=== PATIENT | female | born 1970 | race Caucasian/White ===

== ENCOUNTER 2018-03-31 18:15 | Emergency (ER) | payer OTHER ==
--- OUTSIDE RECORDS SUMMARY | 2018-03-31 18:17 | XMS REPORT ---
:1970 Author Organization eClinicalWorks Care Team Providers Name Role Phone Maya Zayas Provider Role Unavailable Allergies, Adverse Reactions, Alerts Substance Reaction Event Type codeine Info Not Available Drug Allergy flu vaccine Info Not Available Drug Allergy [place] Info Not Available Drug Allergy Problems Problem Type Condition Code Onset Dates Condition Status Problem Thoracic spine pain M54.6 Active Problem Peptic ulcer K27.9 Active Problem Peripheral edema R60.9 Active Problem Rheumatoid arthritis M06.9 Active Problem Hematuria R31.9 Active Problem Hypertension I10 Active Problem Hypoglycemia E16.2 Active Problem Chronic pain syndrome G89.4 Active Problem Diarrhea R19.7 Active Problem Menopause syndrome N95.1 Active Assessment URI, acute J06.9 Active Problem Right knee pain, unspecified M25.561 Active chronicity Assessment Right knee pain, unspecified M25.561 Active chronicity Problem Low back pain M54.5 Active Assessment Acute bronchitis, unspecified J20.9 Active organism Problem Allergic rhinitis due to pollen J30.1 Active Medications Medication Code Code Instructions Start End Date Status Dosage System Date Neurontin [facility] 91925655062 100 MG Orally Active 1 capsule Twice a day Augmentin [facility] 93434022451 875-125 MG November Active 1 tablet Orally every 12 2017 hrs Rosuvastatin [facility] 84969781296 10 MG Orally Active 1 tablet Calcium Once a day Meclizine HCl [facility] [address]-25 25 MG Orally Active 1 tablet three timez a as needed day as needed Inderal LA [facility] 85116442054 120 MG Orally Active 1 capsule Once a day Carafate [facility] 31206011743 1 GM Orally up Active 1 tablet to four times a day as needed Enbrel [facility] 28593560143 50 MG/ML Active 1 ml Subcutaneous every Chantix [facility] 20617102963 0.5 MG Orally Active 1 tablet Once a day Chantix [facility] 19355391323 1 MG Orally Active 1 tablet Continuing Twice a day Month Vipin Furosemide [facility] 50006126164 20 MG Orally Active 1 tablet Once a day Results No Known Results Summary Purpose eClinicalWorks Submission
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
--- OUTSIDE RECORDS SUMMARY | 2018-03-31 18:17 | XMS REPORT ---
:1970 Author Organization eClinicalWorks Care Team Providers Name Role Phone Maya Zayas Provider Role Unavailable Allergies, Adverse Reactions, Alerts Substance Reaction Event Type codeine Info Not Available Drug Allergy flu vaccine Info Not Available Drug Allergy [place] Info Not Available Drug Allergy Problems Problem Type Condition Code Onset Dates Condition Status Problem Diarrhea R19.7 Active Problem Low back pain M54.5 Active Problem Hematuria R31.9 Active Problem Hypoglycemia E16.2 Active Assessment Rheumatoid arthritis, involving M06.9 Active unspecified site, unspecified rheumatoid factor presence Problem Chronic pain syndrome G89.4 Active Assessment Polyarthralgia M25.50 Active Assessment Chronic pain syndrome G89.4 Active Problem Menopause syndrome N95.1 Active Problem Thoracic spine pain M54.6 Active Problem Allergic rhinitis due to pollen J30.1 Active Problem Peptic ulcer K27.9 Active Problem Peripheral edema R60.9 Active Assessment Hyperglycemia R73.9 Active Assessment Hypertension, unspecified type I10 Active Assessment Peripheral edema R60.9 Active Assessment Hyperlipidemia, unspecified E78.5 Active hyperlipidemia type Problem Polyarthralgia M25.50 Active Problem Hypertension, unspecified type I10 Active Problem Hyperlipidemia, unspecified E78.5 Active hyperlipidemia type Problem Rheumatoid arthritis, involving M06.9 Active unspecified site, unspecified rheumatoid factor presence Problem Hyperglycemia R73.9 Active Problem Right knee pain, unspecified M25.561 Active chronicity Medications Medication Code Code Instructions Start End Status Dosage System Date Date Furosemide [facility] 86631658926 20 MG Orally Active 1 tablet Once a day Propranolol HCl [facility] 00996096314 10 MG Orally Active 1 tablet Twice a day Neurontin [facility] 45837530024 100 mg Orally Active 1 capsule Twice a day Rosuvastatin [facility] 61330298971 10 MG Orally Active 1 tablet Calcium Once a day Chantix [facility] 15501582652 0.5 MG Orally Active 1 tablet Once a day Enbrel [facility] 98185069174 50 MG/ML Active 1 ml Subcutaneous every Meclizine HCl [facility] [address]-85 25 MG Orally Active 1 tablet three timez a as needed day as needed Carafate [facility] 97692607185 1 GM Orally up Jul 07, Active 1 tablet to four times a 2018 as needed day Propranolol HCl [facility] 50577605126 10 MG Orally January 08, Active 1 tablet Twice a day 2017 Chantix [facility] 89905848545 1 MG Orally Active 1 tablet Continuing Twice a day Month Vipin Results No Known Results Summary Purpose eClinicalWorks Submission
--- NOTE | 2018-03-31 19:43 | RAD REPORT ---
EXAM DESCRIPTION: RAD - Foot Right 3 View - 03/31/2018 6:59 pm CLINICAL HISTORY: Right fourth toe pain following trauma COMPARISON: None. FINDINGS: No fracture confirmed. There is no dislocation or angulation deformity. A minimal fracture of the distal phalanx could potentially be occult. There is no foreign body. Soft tissues are not gr ossly abnormal. IMPRESSION: No fracture confirmed.
--- NOTE | 2018-03-31 20:08 | ER ---
Nurse's Notes [facility] Name: Daysi Fuller Age: 47 yrs Sex: Female : 1970 Arrival Date: 03/31/2018 Time: 18:19 Bed 14 Private MD: Maya Zayas Diagnosis: Laceration without foreign body of right lesser toe(s) with damage to nail Presentation: 03/31 18:30 Presenting complaint: Patient states: Right 4th toe pain after kicking bed pot. Small aj amount of blood noted. Transition of care: patient was not received from another setting of care. Onset of symptoms was March 31, 2018. Risk Assessment: Do you want to hurt yourself or someone else? Patient reports no desire to harm self or others. Initial Sepsis Screen: Does the patient meet any 2 criteria? No. Patient's initial sepsis screen is negative. Does the patient have a suspected source of infection? No. Patient's initial sepsis screen is negative. Care prior to arrival: None. 18:30 Method Of Arrival: Ambulatory aj 18:30 Acuity: JAOCB 4 aj Triage Assessment: 18:31 General: Appears in no apparent distress. comfortable, Behavior is calm, cooperative, aj appropriate for age. Pain: Complains of pain in Right fourth toenail. Neuro: Level of Consciousness is awake, alert, obeys commands, Oriented to person, place, time, situation, Appropriate for age. Respiratory: Airway is patent Respiratory effort is even, unlabored, Respiratory pattern is regular, symmetrical. Derm: Skin is intact, is healthy with good turgor, Skin is pink, warm \T\ dry. normal. 18:31 Musculoskeletal: Reports pain in Right fourth toenail. Injury Description: Laceration aj sustained to Right fourth toenail is clean, was sustained 30-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 - Social history:: Smoking status: Patient uses tobacco products, smokes one pack cigarettes per day. - Ebola Screening: : Patient negative for fever greater than or equal to 101.5 degrees Fahrenheit, and additional compatible Ebola Virus Disease symptoms Patient denies exposure to infectious person Patient denies travel to an Ebola-affected area in the 21 days before illness onset No symptoms or risks identified at this time. Screenin:37 Abuse screen: Denies threats or abuse. Nutritional screening: No deficits noted. la1 Tuberculosis screening: No symptoms or risk factors identified. Fall Risk None identified. Assessment: 18:36 General: Appears in no apparent distress. Behavior is calm, cooperative. Pain: Denies la1 pain. Neuro: Level of Consciousness is awake, alert, obeys commands, Oriented to person, place, time, situation. Cardiovascular: Capillary refill < 3 seconds is brisk in bilateral toes Patient's skin is warm and dry. Respiratory: Airway is patent Respiratory effort is even, unlabored. GI: No signs and/or symptoms were reported involving the gastrointestinal system. : No signs and/or symptoms were reported regarding the genitourinary system. Musculoskeletal: Circulation, motion, and sensation intact. Capillary refill < 3 seconds, Range of motion: intact in all extremities. Injury Description: Crush injury sustained to Right fourth toenail was sustained 30-60 minutes ago. 19:05 General: Appears in no apparent distress. Behavior is calm, cooperative. Pain: Denies ea pain. Neuro: Level of Consciousness is awake, alert, obeys commands, Oriented to person, place, time, situation. Cardiovascular: Patient's skin is warm and dry. Respiratory: Airway is patent Respiratory effort is even, unlabored. GI: No signs and/or symptoms were reported involving the gastrointestinal system. : No signs and/or symptoms were reported regarding the genitourinary system. Musculoskeletal: Circulation, motion, and sensation intact. Injury Description: Crush injury sustained to plantar aspect of right fifth toe and Right fifth toenail. 20:33 Reassessment: Patient and/or family updated on plan of care and expected duration. Pain ea level reassessed. Patient is alert, oriented x 3, equal unlabored respirations, skin warm/dry/pink. Discharge instructions given to patient, verbalized the understanding of instruction. Vital Signs: 18:31 BP 135 / 76; Pulse 86; Resp 16; Temp 98.1; Pulse Ox 94% on R/A; Weight 97.07 kg; Height aj 5 ft. 6 in. (167.64 cm); 19:09 BP 145 / 93; Pulse 67; Resp 18; Pulse Ox 98% ; Pain 0/10; ea 20:15 BP 135 / 70; Pulse 70; Resp 18; Pulse Ox 99% ; Pain 0/10; ea 18:31 Body Mass Index 34.54 (97.07 kg, 167.64 cm) ED Course: 18:19 Patient arrived in ED. rg4 18:19 Maya Zayas MD is Private Physician. rg4 18:23 Amelia Meyers [facility]-C [facility]. snw 18:23 Marcos Patrick MD is Attending Physician. snw 18:30 Triage completed. aj 18:31 Arm band placed on left wrist. Patient placed in an exam room. aj 18:36 Valentin Curran, RN is Primary Nurse. la1 18:37 Call light in reach. la1 18:37 No provider procedures requiring assistance completed. Patient did not have IV access la1 during this emergency room visit. 18:59 Foot Right 3 View XRAY In Process Unspecified. EDMS 20:06 Maya Zayas MD is Referral Physician. snw Administered Medications: No medications were administered Outcome: 20:07 Discharge ordered by . snw 20:32 Discharged to home ambulatory, with family. ea 20:32 Condition: improved 20:32 Discharge instructions given to patient, Instructed on discharge instructions, follow up and referral plans. medication usage, Demonstrated understanding of instructions, follow-up care, medications, Prescriptions given X 1. 20:35 Patient left the ED. ea Signatures: Dispatcher [employer] EDMS Kala Vasquez, RN Amelia Ramos FNP-C FNP-Csnw Valentin Curran RN Марина Hoyos rg4 Latha Cerrato RN RN ea
--- NOTE | 2018-03-31 20:08 | EDPHYS ---
Physician Documentation [facility] Name: Daysi Fuller Age: 47 yrs Sex: Female : 1970 Arrival Date: 03/31/2018 Time: 18:19 Bed 14 Private MD: Maya Zayas ED Physician Marcos Patrick HPI: 03/31 19:11 This 47 yrs old Female presents to ER via Ambulatory with complaints of Toe snw Injury. 19:11 Onset: The symptoms/episode began/occurred suddenly, today. The patient has not snw experienced similar symptoms in the past. It is unknown whether or not the patient has recently seen a physician. 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 - Social history:: Smoking status: Patient uses tobacco products, smokes one pack cigarettes per day. - Ebola Screening: : Patient negative for fever greater than or equal to 101.5 degrees Fahrenheit, and additional compatible Ebola Virus Disease symptoms Patient denies exposure to infectious person Patient denies travel to an Ebola-affected area in the 21 days before illness onset No symptoms or risks identified at this time. ROS: 19:10 Constitutional: Negative for fever, chills, and weight loss, Eyes: Negative for injury, snw pain, redness, and discharge, ENT: Negative for injury, pain, and discharge, Neck: Negative for injury, pain, and swelling, Cardiovascular: Negative for chest pain, palpitations, and edema, Respiratory: Negative for shortness of breath, cough, wheezing, and pleuritic chest pain, Abdomen/GI: Negative for abdominal pain, nausea, vomiting, diarrhea, and constipation, Back: Negative for injury and pain, : Negative for injury, bleeding, discharge, and swelling, Neuro: Negative for headache, weakness, numbness, tingling, and seizure. 19:10 Skin: Negative for injury, rash, and discoloration. 19:10 MS/extremity: Positive for injury or acute deformity, contusion, laceration, of the distal fourth toe/nail trauma. Exam: 19:07 Constitutional: This is a well developed, well nourished patient who is awake, alert, snw and in no acute distress. Head/Face: Normocephalic, atraumatic. Eyes: Pupils equal round and reactive to light, extra-ocular motions intact. Lids and lashes normal. Conjunctiva and sclera are non-icteric and not injected. Cornea within normal limits. Periorbital areas with no swelling, redness, or edema. ENT: Nares patent. No nasal discharge, no septal abnormalities noted. Tympanic membranes are normal and external auditory canals are clear. Oropharynx with no redness, swelling, or masses, exudates, or evidence of obstruction, uvula midline. Mucous membranes moist. Neck: Trachea midline, no thyromegaly or masses palpated, and no cervical lymphadenopathy. Supple, full range of motion without nuchal rigidity, or vertebral point tenderness. No Meningismus. Chest/axilla: Normal chest wall appearance and motion. Nontender with no deformity. No lesions are appreciated. Cardiovascular: Regular rate and rhythm with a normal S1 and S2. No gallops, murmurs, or rubs. Normal PMI, no JVD. No pulse deficits. Respiratory: Lungs have equal breath sounds bilaterally, clear to auscultation and percussion. No rales, rhonchi or wheezes noted. No increased work of breathing, no retractions or nasal flaring. Abdomen/GI: Soft, non-tender, with normal bowel sounds. No distension or tympany. No guarding or rebound. No evidence of tenderness throughout. Back: No spinal tenderness. No costovertebral tenderness. Full range of motion. Skin: Warm, dry with normal turgor. Normal color with no rashes, no lesions, and no evidence of cellulitis. Neuro: Awake and alert, GCS 15, oriented to person, place, time, and situation. Cranial nerves II-XII grossly intact. Motor strength 5/5 in all extremities. Sensory grossly intact. Cerebellar exam normal. Normal gait. Psych: Awake, alert, with orientation to person, place and time. Behavior, mood, and affect are within normal limits. 19:07 Musculoskeletal/extremity: Extremities: grossly normal except: noted in the right fourth distal toe/nail: contusion, ecchymosis, swelling, tenderness, spilt 4th toenail vertically, bleeding controlled, ROM: no acute changes, Circulation is intact in all extremities. Vital Signs: 18:31 BP 135 / 76; Pulse 86; Resp 16; Temp 98.1; Pulse Ox 94% on R/A; Weight 97.07 kg; Height aj 5 ft. 6 in. (167.64 cm); 19:09 BP 145 / 93; Pulse 67; Resp 18; Pulse Ox 98% ; Pain 0/10; ea 20:15 BP 135 / 70; Pulse 70; Resp 18; Pulse Ox 99% ; Pain 0/10; ea 18:31 Body Mass Index 34.54 (97.07 kg, 167.64 cm) aj Laceration: 20:05 Wound Repair of 1cm ( 0.4in ) subcutaneous laceration to laceration of right fourth snw toe. Linear shaped.. pulled part of toenail off. Distal neuro/vascular/tendon intact. Anesthesia: Local anesthetic administered with 0 mls of 1% lidocaine. Wound prep: Wound explored moderately. Skin closed with 1 4-0 Prolene using simple sutures and sterile technique. Dressed with pressure dressing. Patient tolerated well. MDM: 18:37 Patient medically screened. [facility] 20:09 Data reviewed: vital signs, nurses notes. Data interpreted: Pulse oximetry: on room air snw is 98 %. Interpretation: normal. Counseling: I had a detailed discussion with the patient and/or guardian regarding: the historical points, exam findings, and any diagnostic results supporting the discharge/admit diagnosis, the presence of at least one elevated blood pressure reading (>120/80) during this emergency department visit, radiology results, the need for outpatient follow up, to return to the emergency department if symptoms worsen or persist or if there are any questions or concerns that arise at home. Special discussion: I discussed in detail with the patient the higher chance of wound infection based on his presenting history. Based on the history and exam findings, there is no indication for further emergent testing or inpatient evaluation. I discussed with the patient/guardian the need to see the primary care provider for further evaluation of the symptoms. 03/31 18:37 Order name: Foot Right 3 View XRAY; Complete Time: 19:44 snw 03/31 20:09 Order name: Wound Care; Complete Time: 20:31 snw 03/31 20:09 Order name: Wound dressing; Complete Time: 20:31 snw Administered Medications: No medications were administered Disposition: 04/01 09:21 Co-signature as Attending Physician, Marcos Patrick MD I agree with the assessment and shawn plan of care. Disposition: 03/31/18 20:07 Discharged to Home. Impression: Laceration without foreign body of right lesser toe(s) with damage to nail. - Condition is Stable. - Discharge Instructions: Contusion, Laceration Care, Adult, Fingernail or Toenail Removal, Adult. - Prescriptions for Diclofenac Sodium 75 mg Oral Tablet Sustained Release - take 1 tablet by ORAL route 2 times per day; 30 tablet. - Medication Reconciliation Form, Thank You Letter, Antibiotic Education, Prescription Opioid Use form. - Follow up: Maya Zayas MD; When: 7 - 10 days; Reason: Staple/Suture removal. Follow up: Emergency Department; When: As needed; Reason: Worsening of condition. Signatures: Dispatcher [employer] EDKala Ramachandran, RN Marcos Osorio MD MD cha Therrien, Shelly, BLISTER PACKAGING MACHINE OPERATOR-C BLISTER PACKAGING MACHINE OPERATOR-Csnw Valentin Curran RN RN laLatha Watkins RN RN ea Corrections: (The following items were deleted from the chart) 03/31 20:35 20:07 03/31/2018 20:07 Discharged to Home. Impression: Laceration without foreign body ea of right lesser toe(s) with damage to nail. Condition is Stable. Forms are Medication Reconciliation Form, Thank You Letter, Antibiotic Education, Prescription Opioid Use. Follow up: Maya Zayas; When: 7 - 10 days; Reason: Staple/Suture removal. Follow up: Emergency Department; When: As needed; Reason: Worsening of condition. snw
[2018-03-31 20:39] VITALS: TEMP 98.1
[2018-03-31 20:41] VITALS: BP 135/70; O2SAT 99
== END 2018-03-31 20:35 | disposition home or self-care (01) ==
LOC: ER 18:15
PROC: 0JQQ0ZZ Repair Right Foot Subcutaneous Tissue and Fascia, Open Approach (ICD-10-PCS; principal; 2018-03-31)
DX: S91.214A Laceration without foreign body of right lesser toe(s) with damage to nail, initial encounter (principal); W22.09XA Striking against other stationary object, initial encounter; Y93.01 Activity, walking, marching and hiking; Y92.013 Bedroom of single-family (private) house as the place of occurrence of the external cause; Z88.5 Allergy status to narcotic agent; M06.9 Rheumatoid arthritis, unspecified; F17.210 Nicotine dependence, cigarettes, uncomplicated
CPT/HCPCS: 99283

== ENCOUNTER 2018-12-30 21:52 | Emergency (ER) | payer OTHER ==
--- OUTSIDE RECORDS SUMMARY | 2018-12-30 21:55 | XMS REPORT ---
:1970 Author Organization eClinicalWorks Care Team Providers Name Role Phone Maya Zayas Provider Role Unavailable Allergies, Adverse Reactions, Alerts Substance Reaction Event Type codeine Info Not Available Drug Allergy flu vaccine Info Not Available Drug Allergy [place] Info Not Available Drug Allergy Problems Problem [...] End Status Dosage System Date Date Furosemide [facility] 39087735372 20 MG Orally Active 1 tablet Once a day Propranolol HCl [facility] 56798081221 10 MG Orally Active 1 tablet Twice a day Neurontin [facility] 67082204861 100 mg Orally Active 1 capsule Twice a day Rosuvastatin [facility] 24473422369 10 MG Orally Active 1 tablet Calcium Once a day Chantix [facility] 34747925990 0.5 MG Orally Active 1 tablet Once a day Enbrel [facility] 01253591919 50 MG/ML Active 1 ml Subcutaneous every Meclizine HCl [facility] [address]-02 25 MG Orally Active 1 tablet three timez a as needed day as needed Carafate [facility] 41999864101 1 GM Orally up Jul 07, Active 1 tablet to four times a 2018 as needed day Propranolol HCl [facility] 65354100104 10 MG Orally January 08, Active 1 tablet Twice a day 2017 Chantix [facility] 73238618258 1 MG Orally Active 1 tablet Continuing Twice a day Month Vipin Results No Known Results Summary Purpose eClinicalWorks Submission
--- OUTSIDE RECORDS SUMMARY | 2018-12-30 21:55 | XMS REPORT ---
:1970 Author Organization eClinicalWorks Care Team Providers Name Role Phone Maya Zayas Provider Role Unavailable Allergies, Adverse Reactions, Alerts Substance Reaction Event Type flu vaccine Info Not Available Drug Allergy [place] Info Not Available Drug Allergy Problems Problem [...] Status Dosage System Date Date Propranolol HCl [facility] 07203953290 10 MG Orally January 08, Active 1 tablet Twice a day 2017 Rosuvastatin [place] 03581729543 10 MG Orally Active 1 tablet Calcium Once a day Enbrel [facility] 33029702627 50 MG/ML Active 1 ml Subcutaneous every Meclizine HCl [facility] [address]-00 25 MG Orally Active 1 tablet three timez a as needed day as needed Neurontin ND 35321796543 100 mg Orally Active 1 capsule Twice a day Carafate ND 98549285532 1 GM Orally up Jul 07, Active 1 tablet to four times a 2018 as needed day Furosemide ND 50516117460 20 MG Orally Active 1 tablet Once a day Chantix [facility] 61407615083 1 MG Orally Active 1 tablet Continuing Twice a day Chantix [facility] 17370861175 0.5 MG Orally Active 1 tablet Once a day Propranolol HCl [facility] 84757035062 10 MG Orally Active 1 tablet Twice a day Results No Known Results Summary Purpose eClinicalWorks Submission
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
--- OUTSIDE RECORDS SUMMARY | 2018-12-30 21:56 | XMS REPORT ---
:1970 Author Organization eClinicalWorks Care Team Providers Name Role Phone Chana Maya Provider Role Unavailable Allergies, Adverse Reactions, Alerts Substance Reaction Event Type flu vaccine Info Not Available Drug Allergy Rosuvastatin Calcium Bladder leakage Drug Allergy [place] Info Not Available Drug Allergy Problems Problem Type Condition Code Onset Dates Condition Status Assessment Rheumatoid arthritis, involving M06.9 Active unspecified site, unspecified rheumatoid factor presence Assessment Chronic pain syndrome G89.4 Active Assessment Hyperlipidemia, unspecified E78.5 Active hyperlipidemia type Assessment Polyarthralgia M25.50 Active Assessment Peripheral edema R60.9 Active Assessment Hypertension, unspecified type I10 Active Assessment Abnormal CBC R79.89 Active Assessment Leukocytosis, unspecified type D72.829 Active Assessment Post-traumatic stress reaction F43.10 Active Problem Hypoglycemia E16.2 Active Assessment Rash and nonspecific skin eruption R21 Active Problem Menopause syndrome N95.1 Active Problem Diarrhea R19.7 Active Problem Low back pain M54.5 Active Problem Hematuria R31.9 Active Problem Leukocytosis, unspecified type D72.829 Active Problem Abnormal CBC R79.89 Active Problem Polyarthralgia M25.50 Active Problem Rheumatoid arthritis, involving M06.9 Active unspecified site, unspecified rheumatoid factor presence Problem Rash and nonspecific skin eruption R21 Active Problem Hypertension, unspecified type I10 Active Problem Contusion of abdominal wall, S30.1XXD [...] Problem Thoracic spine pain M54.6 Active Problem Peripheral edema R60.9 Active Medications Medication Code Code Instructions Start End Status Dosage System Date Date Propranolol HCl [facility] 66586358451 10 MG Orally Active 1 tablet Twice a day Neurontin [facility] 03237470740 100 mg Orally Active 1 capsule Twice a day Carafate [facility] 59468708925 1 GM Orally up Jun Active 1 tablet as to four times , needed a day 2018 Furosemide [facility] 81389470163 20 MG Orally Active 1 tablet Once a day Enbrel [facility] 15619693235 50 MG/ML Active 1 ml Subcutaneous every Propranolol HCl [facility] 93984806705 10 MG Orally January 08, Active 1 tablet Twice a day 2017 Chantix [facility] 27989369964 1 MG Orally Active 1 tablet Continuing Month Twice a day Vipin Chantix [facility] 18211853083 0.5 MG Orally Active 1 tablet Once a day Rosuvastatin [facility] 36237737211 10 MG Orally Active 1 tablet Calcium Once a day in the evening Triamcinolone [facility] 36628673336 0.1 % November Active 1 application Acetonide Externally 27, to affected Twice a day 2018 area Meclizine HCl [facility] [address]-40 25 MG Orally Active 1 tablet as three timez a needed day as needed Results No Known Results Summary Purpose eClinicalWorks Submission
[2018-12-31] MEDS ORDERED: AMOX/K CLAV 875 MG TAB ONE (00:17)
[2018-12-31] MEDS ORDERED: BUPIVACAINE 0.5% PF 10 ML VIAL ONE (00:17)
[2018-12-31] MEDS ORDERED: LIDOCAINE 1% W/EPI 1:100,000 MDV 50 ML VIAL ONE (00:18)
[2018-12-31] MEDS ORDERED: TETANUS & DIPHTHERIA TOX,ADULT 0.5 ML VIAL ONE (00:18)
--- NOTE | 2018-12-31 00:41 | ER ---
Nurse's Notes [facility] Name: Daysi Fuller Age: 48 yrs Sex: Female : 1970 Arrival Date: 12/30/2018 Time: 21:56 Bed 15 Private MD: Maya Zayas Diagnosis: Bitten by dog;Laceration without foreign body of right hand Presentation: 12/30 21:58 Presenting complaint: Patient states: My dog bit me. Transition of care: patient was ed1 not received from another setting of care. Onset of symptoms was December 30, 2018. Risk Assessment: Do you want to hurt yourself or someone else? Patient reports no desire to harm self or others. Initial Sepsis Screen: Does the patient meet any 2 criteria? No. Patient's initial sepsis screen is negative. Does the patient have a suspected source of infection? No. Patient's initial sepsis screen is negative. Care prior to arrival: None. 21:58 Method Of Arrival: Ambulatory ed1 21:58 Acuity: JACOB 4 ed1 Triage Assessment: 22:02 Bite description: bite sustained to right hand is from animal, was sustained 30-60 ed1 minutes ago. by a dog, animal information: vaccination(s) is current, Animal control has. General: Appears uncomfortable, Behavior is calm, cooperative. Pain: Complains of pain in right hand Pain currently is 8 out of 10 on a pain scale. 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 - Social history:: Smoking status: Patient uses tobacco products, smokes two packs cigarettes per day. - Ebola Screening: : Patient negative for fever greater than or equal to 101.5 degrees Fahrenheit, and additional compatible Ebola Virus Disease symptoms Patient denies exposure to infectious person Patient denies travel to an Ebola-affected area in the 21 days before illness onset No symptoms or risks identified at this time. Screenin:00 Abuse screen: Denies threats or abuse. Nutritional screening: No deficits noted. jb4 Tuberculosis screening: No symptoms or risk factors identified. Fall Risk None identified. Assessment: 22:15 General: [facility] Department notified of dog bite. Jumpbasting Lining Baster in ed1 route to get statement from patient.. 23:00 General: Appears in no apparent distress. uncomfortable, Behavior is calm, cooperative, jb4 appropriate for age. Pain: Complains of pain in heel of right hand Pain does not radiate. Pain currently is 5 out of 10 on a pain scale. Quality of pain is described as stabbing. Neuro: Level of Consciousness is awake, alert, obeys commands, Oriented to person, place, time, situation. Cardiovascular: Patient's skin is warm and dry. Respiratory: Airway is patent Respiratory effort is even, unlabored, Respiratory pattern is regular, symmetrical. GI: No signs and/or symptoms were reported involving the gastrointestinal system. : No signs and/or symptoms were reported regarding the genitourinary system. EENT: No signs and/or symptoms were reported regarding the EENT system. Derm: Skin puncture wound noted to the right palm Skin is pink, warm \T\ dry. Musculoskeletal: Circulation, motion, and sensation intact. Range of motion: intact in all extremities. Injury Description: Abrasion sustained to palmar aspect of proximal phalanx of right thumb and palmar aspect of right wrist Puncture sustained to heel of right hand. 12/31 00:00 Reassessment: Patient appears in no apparent distress at this time. Patient and/or jb4 family updated on plan of care and expected duration. Pain level reassessed. Patient is alert, oriented x 3, equal unlabored respirations, skin warm/dry/pink. 00:53 Reassessment: Patient appears in no apparent distress at this time. Patient and/or jb4 family updated on plan of care and expected duration. Pain level reassessed. Patient is alert, oriented x 3, equal unlabored respirations, skin warm/dry/pink. ambulated out of ED with daughter, steady gait, no IV access during this ED visit. Vital Signs: 12/30 22:02 BP 154 / 87; Pulse 78; Resp 18; Temp 97.7; Pulse Ox 96% on R/A; Weight 92.08 kg; Height ed1 5 ft. 8 in. (172.72 cm); Pain 8/10; 23:00 BP 145 / 70; Pulse 73; Resp 16; Pulse Ox 96% on R/A; jb4 12/31 00:15 BP 155 / 98; Pulse 78; Resp 16; Pulse Ox 97% on R/A; jb4 12/30 22:02 Body Mass Index 30.87 (92.08 kg, 172.72 cm) ed1 ED Course: 12/30 21:56 Patient arrived in ED. am2 21:56 Maya Zayas MD is Private Physician. am2 21:58 Triage completed. ed1 22:02 Arm band placed on. ed1 22:49 Marcos Patel PA is PHCP. cp 22:49 Marcos Patrick MD is Attending Physician. cp 23:00 Patient has correct armband on for positive identification. Bed in low position. Call jb4 light in reach. Side rails up X 1. Pulse ox on. NIBP on. 23:00 No provider procedures requiring assistance completed. Patient did not have IV access jb4 during this emergency room visit. 23:38 Joao Molina, LUIS is Primary Nurse. jb4 12/31 00:15 XRAY Hand RIGHT 3 View In Process Unspecified. 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 Exp: jb4 10/10/2020. Lot #: [id number]. } Route: IM; Site: left deltoid; 00:53 Follow up: Response: No adverse reaction jb4 00:24 Drug: Augmentin 875 mg Route: PO; jb4 00:52 Follow up: Response: No adverse reaction jb4 00:52 Not Given (Patient Refused): Lidocaine-Epinephrine -1%: (1:100,000) 5 ml 20 ml jb4 Infiltration once; to bedside 00:52 Not Given (Patient Refused): Marcaine (0.5 %) 5 ml 10 ml Infiltration once jb4 Outcome: 00:40 Discharge ordered by . cp 00:55 Discharged to home ambulatory. jb4 00:55 Condition: stable 00:55 Discharge instructions given to patient, family, Instructed on discharge instructions, follow up and referral plans. medication usage, Demonstrated understanding of instructions, follow-up care, medications, Prescriptions given X 2. 00:56 Patient left the ED. jb4 Signatures: Dispatcher [employer] EDSophie Mora RN RN ed1 Marcos Patel PA PA cp Bryson, James, RN RN jb4 Kala Ramirez am2
--- NOTE | 2018-12-31 00:41 | EDPHYS ---
Physician Documentation [facility] Name: Daysi Fuller Age: 48 yrs Sex: Female : 1970 Arrival Date: 12/30/2018 Time: 21:56 Bed 15 Private MD: Maya Zayas ED Physician Marcos Patrick HPI: 12/30 23:30 This 48 yrs old Female presents to ER via Ambulatory with complaints of Dog cp Bite. 23:30 The patient was bitten on the palmar aspect of right hand, by a dog, at home. Onset: cp The symptoms/episode began/occurred just prior to arrival. Animal information: bitten by dog that belongs to patient, law enforcement contacted. Secondary to the bite the patient reports a laceration, that is deep, irregular shaped. Associated signs and symptoms: Pertinent positives: tenderness, bleeding. Severity of symptoms: in the emergency department the symptoms have improved, mildly. 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 - Social history:: Smoking status: Patient uses tobacco products, smokes two packs cigarettes per day. - Ebola Screening: : Patient negative for fever greater than or equal to 101.5 degrees Fahrenheit, and additional compatible Ebola Virus Disease symptoms Patient denies exposure to infectious person Patient denies travel to an Ebola-affected area in the 21 days before illness onset No symptoms or risks identified at this time. ROS: 23:35 Constitutional: Negative for body aches, chills, fever. cp 23:35 Eyes: Negative for injury, pain, redness, and discharge. cp 23:35 Cardiovascular: Negative for chest pain. 23:35 Respiratory: Negative for cough, shortness of breath, wheezing. 23:35 Abdomen/GI: Negative for abdominal pain, nausea, vomiting, and diarrhea. 23:35 Skin: Positive for of the right hand, dog bite. 23:35 Neuro: Negative for numbness, weakness. 23:35 All other systems are negative. Exam: 12/31 00:15 Constitutional: The patient appears in no acute distress, alert, awake, non-toxic, well cp developed, well nourished. 00:15 Head/Face: Normocephalic, atraumatic. cp 00:15 Chest/axilla: Inspection: normal. 00:15 Cardiovascular: Rate: normal. 00:15 Respiratory: the patient does not display signs of respiratory distress, Respirations: normal, no use of accessory muscles, no retractions, no splinting, no tachypnea. 00:15 Musculoskeletal/extremity: Perfusion: the extremity is normally perfused throughout, Sensation intact. Tendon exam: specific tendon testing normal through active and passive range of motion 00:15 Skin: injury, laceration(s), the wound is approximately 1.5 cm(s), of the hyper thenar eminence of right hand, that can be described as no foreign body, jagged, with mild bleeding. Vital Signs: 12/30 22:02 BP 154 / 87; Pulse 78; Resp 18; Temp 97.7; Pulse Ox 96% on R/A; Weight 92.08 kg; Height ed1 5 ft. 8 in. (172.72 cm); Pain 8/10; 23:00 BP 145 / 70; Pulse 73; Resp 16; Pulse Ox 96% on R/A; jb4 12/31 00:15 BP 155 / 98; Pulse 78; Resp 16; Pulse Ox 97% on R/A; jb4 12/30 22:02 Body Mass Index 30.87 (92.08 kg, 172.72 cm) ed1 MDM: 12/30 22:50 Patient medically screened. shawn 23:35 Differential diagnosis: superficial laceration, tendon injury, vascular injury, rabies, cp cellulitis, open fracture. 12/31 00:30 Test interpretation: by ED physician or midlevel provider: plain radiologic studies, cp xrays of right hand negative for fracture. 00:40 Data reviewed: vital signs, nurses notes, radiologic studies, plain films, and as a cp result, I will discharge patient. 00:40 Counseling: I had a detailed discussion with the patient and/or guardian regarding: the cp historical points, exam findings, and any diagnostic results supporting the discharge/admit diagnosis, radiology results, the need for outpatient follow up, a family practitioner, to return to the emergency department if symptoms worsen or persist or if there are any questions or concerns that arise at home. Response to treatment: the patient's symptoms have markedly improved after treatment. Special discussion: I discussed in detail with the patient the higher chance of wound infection based on his presenting history. ED course: VSS. Wound cleaned and irrigated. Wound left open w/o sutures and will discharge to home for continued monitoring. 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 Exp: jb4 10/10/2020. Lot #: [id number]. } Route: IM; Site: left deltoid; 00:53 Follow up: Response: No adverse reaction jb4 00:24 Drug: Augmentin 875 mg Route: PO; jb4 00:52 Follow up: Response: No adverse reaction jb4 00:52 Not Given (Patient Refused): Lidocaine-Epinephrine -1%: (1:100,000) 5 ml 20 ml jb4 Infiltration once; to bedside 00:52 Not Given (Patient Refused): Marcaine (0.5 %) 5 ml 10 ml Infiltration once jb4 Disposition: 06:32 Co-signature as Attending Physician, Marcos Patrick MD I agree with the assessment and shawn plan of care. Disposition: 12/31/18 00:40 Discharged to Home. Impression: Bitten by dog, Laceration without foreign body of right hand. - Condition is Stable. - Discharge Instructions: Laceration Care, Adult, Animal Bite. - Prescriptions for Augmentin 875- 125 mg Oral Tablet - take 1 tablet by ORAL route every 12 hours for 10 days; 20 tablet. Ibuprofen 800 mg Oral Tablet - take 1 tablet by ORAL route every 8 hours As needed take with food; 30 tablet. - Medication Reconciliation Form, Thank You Letter, Antibiotic Education, Prescription Opioid Use form. - Follow up: Private Physician; When: 48 Hours; Reason: Wound Recheck. - Problem is new. - Symptoms have improved. Signatures: Dispatcher [employer] EDMS Marcos Patrick MD MD cha Riggs, Erika RN RN ed1 Marcos Patel PA PA cp Joao Molina, RN RN jb4 Corrections: (The following items were deleted from the chart) 00:56 00:40 12/31/2018 00:40 Discharged to Home. Impression: Bitten by dog; Laceration jb4 without foreign body of right hand. Condition is Stable. Forms are Medication Reconciliation Form, Thank You Letter, Antibiotic Education, Prescription Opioid Use. Follow up: Private Physician; When: 48 Hours; Reason: Wound Recheck. Problem is new. Symptoms have improved. cp
[2018-12-31 02:14] VITALS: TEMP 97.7
[2018-12-31 02:18] VITALS: BP 155/98; O2SAT 97
--- NOTE | 2018-12-31 08:30 | RAD REPORT ---
EXAM DESCRIPTION: RAD - Hand Right 3 View - 12/31/2018 12:10 am CLINICAL HISTORY: ANIMAL BITE COMPARISON: Hand Right 3 View dated 06/05/2014; Hand Right 3 View dated 10/02/2011 FINDINGS: Soft tissue swelling is seen along the radial aspect of the hand. No fracture or radiopaqu e foreign body.
== END 2018-12-31 00:56 | disposition home or self-care (01) ==
LOC: ER 21:52
DX: S61.451A Open bite of right hand, initial encounter (principal); W54.0XXA Bitten by dog, initial encounter; Y92.009 Unspecified place in unspecified non-institutional (private) residence as the place of occurrence of the external cause; Z88.5 Allergy status to narcotic agent; F17.210 Nicotine dependence, cigarettes, uncomplicated; Z23 Encounter for immunization
CPT/HCPCS: 90471; 90714; 99284